=== PATIENT | male | born 1960 | race Caucasian/White ===

== ENCOUNTER 2017-05-02 17:10 | Emergency (ER) | payer OTHER, MEDICARE, MEDICAID ==
[2017-05-02 17:20] VITALS: TEMP 97.2
[2017-05-02 17:40] LABS: BASOPHILS % (AUTO) 1 % (0-3); EOSINOPHILS % (AUTO) 2 % (0-9); HEMATOCRIT 41 % (39-53); MEAN CORPUSCULAR HGB CONC 35.7 gm/dl (32.0-36.0); MEAN CORPUSCULAR VOLUME 89 fL (80-100); MONOCYTES % (AUTO) 12.5 % (0-12)
[2017-05-02 17:52] LABS: ALBUMIN 3.8 gm/dl (3.4-5.0); CALCIUM 9.1 mg/dl (8.5-10.1); POTASSIUM 3.7 mMol/L (3.5-5.1)
[2017-05-02] MEDS ORDERED: PROCHLORPERAZINE EDISYLATE 5 MG/ML SOL ONE (17:58)
[2017-05-02] MEDS ORDERED: HYDROMORPHONE 1 MG/ML SYRINGE ONE (17:58)
[2017-05-02] MEDS ORDERED: PROCHLORPERAZINE EDISYLATE 5 MG/ML SOL IV ONE (18:00)
[2017-05-02] MEDS ORDERED: HYDROMORPHONE 1 MG/ML SYRINGE IV ONE (18:00)
[2017-05-02 18:46] VITALS: O2SAT 98
[2017-05-02 18:49] VITALS: RESP 17
[2017-05-02] MEDS ORDERED: MORPHINE SULFATE 10 MG/ML SOL IV ONE (18:51)
[2017-05-02] MEDS ORDERED: MORPHINE SULFATE 10 MG/ML SOL ONE (18:52)
[2017-05-02 19:53] VITALS: BP 137/79; PULSE 73
== END 2017-05-02 19:45 | disposition home or self-care (01) | DRG 914 ==
LOC: ED 17:10
DX: S19.9XXA Unspecified injury of neck, initial encounter (principal); R10.2 Pelvic and perineal pain; S06.0X0A Concussion without loss of consciousness, initial encounter; S70.01XA Contusion of right hip, initial encounter; W01.0XXA Fall on same level from slipping, tripping and stumbling without subsequent striking against object, initial encounter; Y92.59 Other trade areas as the place of occurrence of the external cause; R10.9 Unspecified abdominal pain; M54.9 Dorsalgia, unspecified; M79.603 Pain in arm, unspecified
CPT/HCPCS: 70450; 72125; 72131; 73200; 73700; 80053; 85025; 99285; J0780; J2270; J1170